=== PATIENT | female | born 1960 | race Caucasian/White ===

== ENCOUNTER 2020-06-29 06:47 | Emergency (ER) | payer SELFPAY ==
--- NOTE | ~2020-06-29 | CT_ITS ---
EXAMINATION: CTA brain carotid DATE: 06/29/2020 08:48 INDICATION: Right arm pain, weakness, and numbness. TECHNIQUE: Computed tomographic angiography (CTA) of the head was performed without and with 100 mL O mnipaque-350 intravenous contrast. CTA of the neck was performed with intravenous contrast. Automated exposure control and iterative reconstruction technique were employed. The dose-length product was 1 733.84 mGy-cm. Maximum intensity projection and volume rendered 3D-reconstructions were created by ana duran technologist on a separate workstation. COMPARISON: None. FINDINGS: HEAD CTA: There is no intracranial hemorrhage, acute infarction, or abnormal intracranial mass lesion . The ventricles are normal in size. The orbits are normal. There is mild mucosal thickening in the e thmoid sinuses and moderate mucosal thickening in left sphenoid sinus. The mastoid air cells are norm al. The vertebral arteries are codominant. There is no significant stenosis of basilar artery or the posterior cerebral arteries. There is no significant stenosis of the intracranial internal carotid ar teries or anterior or middle cerebral arteries. Anterior communicating artery is normal. The posterio r communicating arteries are normal. There is no aneurysm. NECK CTA: There is mild scarring at the lung apices. There are no pathologically enlarged lymph nodes . There is no significant stenosis of the vertebral arteries. There is no plaque in the proximal inte rnal carotid arteries. There is 0% stenosis of the proximal right internal carotid artery relative to normal distal artery lumen diameter (NASCET criteria). There is 0% stenosis of the proximal left int ernal carotid artery relative to normal distal artery lumen diameter. There is mild cervical spondylo sis. IMPRESSION: 1. Normal brain. No aneurysm or significant intracranial arterial stenosis. 2. 0% stenosis of the proximal internal carotid arteries relative to normal distal artery lumen diame ters (NASCET criteria). Reviewed, dictated and finalized at location A. IMPRESSION: 1. Normal brain. No aneurysm or significant intracranial arterial stenosis. 2. 0% stenosis of the proximal internal carotid arteries relative to normal dis bud artery lumen diameters (NASCET criteria).
[2020-06-29 06:53] VITALS: BP 128/81; PULSE 77; RESP 100; TEMP 36.2; O2SAT 100
--- NOTE | 2020-06-29 07:23 | ECG_ITS ---
Measurements Intervals [place] Rate: 70 P: -3 NH: 164 QRS: 27 QRSD: 79 T: 33 QT: 391 QTc: 424 Interpretive Statements SINUS RHYTHM LOW QRS VOLTAGE IN PRECORDIAL LEADS RSR' IN V1 OR V2, CONSIDER RIGHT VENTRICULAR HYPERTROPHY OR RIGHT VCD BORDERLINE ECG Electronically Signed On 06-29-2020 8:07:16 CDT by Josesito Moreno D.O.
--- NOTE | 2020-06-29 07:34 | ED.GENADULT ---
HPI - General Adult General Chief complaint: Extremity Problem,Nontraumatic Stated complaint: can't feel my fingers. Time Seen by Provider: 06/29/20 07:04 Source: patient Mode of arrival: ambulatory Limitations: no limitations History of Present Illness HPI narrative: Patient is a 60 y/o female complaining of right arm numbness noticed when she woke up this morning at approximately 5:00 AM. She states that she felt fine when she went to sleep at approximately 9:00 PM last night. She also has some right arm weakness and pain. She describes her pain as a burning sensation and rates it as 8/10. She took Aleve which did not help with her pain. She denies any leg weakness/numbness or speech difficulty. Related Data Allergies Allergy/AdvReac Type Severity Reaction Status Date / Time promethazine [From Phenergan] Allergy Seizure Verified 06/29/20 07:00 Review of Systems Constitutional: Constitutional: Denies chills, Denies fever(s) and Denies headache(s) Eyes: Eyes: Denies blurry vision ENT: Denies headache(s) and Denies neck pain Cardiovascular: Cardiovascular: Denies chest pain and Denies dyspnea Respiratory: Respiratory: Denies cough and Denies dyspnea Gastrointestinal: Gastrointestinal: Denies abdominal pain, Denies diarrhea, Denies nausea and Denies vomiting Genitourinary: Genitourinary: Denies hematuria and Denies dysuria Musculoskeletal: Musculoskeletal: Denies back pain, Denies neck pain and Reports other (+right arm pain) Neurologic: Denies headache(s), Reports focal weakness (right arm) and Reports paresthesias (right arm numbness) Exam Const: General: no acute distress and well developed Orientation/consciousness: oriented to person, oriented to place, oriented to time and patient oriented x3 HENMT: Head: normocephalic Ears: external ears normal General nose exam: Normal external nose present Eyes: General: appearance normal, both eyes and all related structures Conjunctivae: conjunctivae normal Neck: Neck: normal visual inspection and full ROM Chest: Chest palpation & inspection: normal inspection of the chest and no tenderness Resp: Effort & Inspection: normal respiratory effort Auscultation: clear to auscultation bilaterally Cardio: Rate: regular rate Rhythm: regular rhythm GI: GI Palp: No abdominal tenderness and Yes Soft to palpation Skin: General skin exam: normal color and turgor normal Neuro: General: oriented to person, oriented to place, oriented to time and patient oriented x3 Cognition (Neuro): normal cognition Extrem: General: normal to inspection, full ROM and no pedal edema Psych: Appearance: grossly normal Mental Status: mental status grossly normal Affect: normal affect Course Reevaluation(s) Reevaluation #1: Rechecked patient. She states that she feels better and has no weakness or paresthesia to right arm. Offered patient admission for observation and possible stroke workup. Informed patient that her symptoms are likely related to cervical radiculopathy, but stroke is not completely ruled out. She does not want to be admitted and wants to go home and return if symptoms worsen. Date: 06/29/20 Vital Signs Vital signs: Vital Signs Temperature 36.2 C L 06/29/20 06:53 Pulse Rate 77 06/29/20 06:53 Respiratory Rate 100 H 06/29/20 06:53 Blood Pressure 128/81 06/29/20 06:53 Pulse Oximetry 100 06/29/20 06:53 Temperature 36.2 C L 06/29/20 09:56 Pulse Rate 77 06/29/20 06:53 Respiratory Rate 100 H 06/29/20 06:53 Blood Pressure 128/81 06/29/20 06:53 Pulse Oximetry 100 06/29/20 06:53 Medical Decision Making Vital Signs Vital Signs: Vital Signs Temperature 36.2 C L 06/29/20 06:53 Pulse Rate 77 06/29/20 06:53 Respiratory Rate 100 H 06/29/20 06:53 Blood Pressure 128/81 06/29/20 06:53 Pulse Oximetry 100 06/29/20 06:53 Temperature 36.2 C L 06/29/20 09:56 Pulse Rate 77 06/29/20 06:53 Respiratory Rate 100 H 06/29/20 06:53 Bl
[2020-06-29 07:52] LABS: Basophils Percent Auto 0.7 % (0.2-1.2); Eosinophils Absolute Auto 0.1 K/mm3 (0-0.3); Eosinophils Percent Auto 1.5 % (0-4.4); Hematocrit 38.4 % (37.0-47.0); Hemoglobin 12.4 g/dL (12.0-15.0); Immature Granulocyte Absolute 0.01 K/mm3 (0.00-0.031); Immature Granulocyte Percent A 0.2 % (0-0.5); Lymphocytes Absolute Auto 1.41 K/mm3 (0.9-3.2); Lymphocytes Percent Auto 35.1 % (18.3-44.2); Mean Corpuscular HGB Conc 32.3 g/dl (32-36); Mean Corpuscular Hemoglobin 27.6 pg (26-34); Mean Corpuscular Volume 85.5 fl (80-100); Mean Platelet Volume 9.5 fl (7.4-10.4); Monocytes Absolute Auto 0.3 K/mm3 (0.1-0.6); Monocytes Percent Auto 8.5 % (2.6-8.5); Neutrophils Absolute Auto 2.2 K/mm3 (1.3-6.7); Platelet Count Result 232 k/mm3 (150-375); Red Blood Count 4.49 M/mm3 (4.2-5.4); Red Cell Distribution Width 13.7 % (11.5-14.5)
[2020-06-29 08:02] LABS: Prothrombin Time 12.4 Seconds (11.1-14.7)
[2020-06-29 08:03] LABS: Partial Thromboplastin Time 23.8 SECONDS (22.3-36.8)
[2020-06-29 08:08] LABS: Alanine Aminotransferase 23 U/L (4-35); Albumin Level 3.8 g/dL (3.5-5.1); Alkaline Phosphatase 84 U/L (38-126); Anion Gap 5 mmol/L (8-16); Aspartate Amino Transferase 25 U/L (14-36); Bilirubin,Total 0.1 mg/dL (0.2-1.3); Blood Urea Nitrogen 16 mg/dL (7-17); Carbon Dioxide 25 mmol/L (22-30); Chloride 108 mmol/L (98-107); Estimated CRCL calculation 72 ml/min; Estimated Glomerular Filt Rate > 60; Glucose 104 mg/dL (65-105); Potassium 4.2 mmol/L (3.4-5.0); Sodium 138 mmol/L (137-145)
[2020-06-29] MEDS: traMADol HCL 50 MG TABLET PO (09:26)
[2020-06-29 09:56] VITALS: TEMP 36.2
== END 2020-06-29 09:56 | disposition home or self-care (01) ==
PROVIDERS: Emergency Provider Emergency Medicine
DX: M54.12 Radiculopathy, cervical region (principal); R94.31 Abnormal electrocardiogram [ECG] [EKG]
CPT/HCPCS: 36415; 70496; 70498; 80053; 85025; 85610; 85730; 93005; 99284; A9270; Q9967